=== PATIENT | female | born 1980 | race African-American/Black ===

== ENCOUNTER 2017-04-22 15:31 | Emergency (ER) | payer BC, OTHER ==
[2017-04-22 15:40] VITALS: BP 150/88; PULSE 83; TEMP 98.1; BMI 51.5
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
[2017-04-22] MEDS ORDERED: diazePAM 5 MG TABLET PO ONE (16:35)
[2017-04-22] MEDS ORDERED: IBUPROFEN 600 MG TABLET (FP) PO ONE ×2 (16:35→16:45)
[2017-04-22] MEDS ORDERED: diazePAM 5 MG TABLET ONE (16:46)
== END 2017-04-22 18:37 | disposition home or self-care (01) ==
LOC: FER 15:31
DX: M54.41 Lumbago with sciatica, right side (principal); V43.52XA Car driver injured in collision with other type car in traffic accident, initial encounter; Y93.89 Activity, other specified; Y92.410 Unspecified street and highway as the place of occurrence of the external cause
CPT/HCPCS: 72100-TC-FY; 99282-25

== ENCOUNTER 2020-12-30 09:12 | Inpatient (IN) | payer BC ==
[2020-12-24 11:47] VITALS: BMI 52.2
[2020-12-30] MEDS ORDERED: ROPIVACAINE HCL 0.5% 30ML VIAL ONE (11:20)
[2020-12-30] MEDS ORDERED: MIDAZOLAM HCL 2 MG/2 ML SINGLE DOSE VIAL ONE (11:20)
[2020-12-30] MEDS ORDERED: SODIUM CHLORIDE 0.9% P/F 10 ML VIAL IJ ONE (11:20)
[2020-12-30] MEDS ORDERED: BUPIVACAINE HCL/PF 0.25% (2.5MG/ML) 10 ML VIAL ONE (12:15)
[2020-12-30] MEDS ORDERED: PROPOFOL 20 ML ONE ×2 (12:18)
[2020-12-30] MEDS ORDERED: fentaNYL CITRATE 250 MCG/5 ML VIAL ONE (12:18)
[2020-12-30] MEDS ORDERED: SUCCINYLCHOLINE CHLORIDE 200 MG/10 ML SYRINGE ONE (12:18)
[2020-12-30] MEDS ORDERED: ROCURONIUM BROMIDE 50 MG/5 ML SYRINGE ONE (12:18)
[2020-12-30] MEDS ORDERED: NEOSTIGMINE METHYLSULFATE 0.5 MG/1 ML - 10 ML MDV ONE (13:59)
[2020-12-30] MEDS ORDERED: BUPIVACAINE HCL/PF 0.25% (2.5MG/ML) 10 ML VIAL IJ ONE (14:53)
[2020-12-30] MEDS ORDERED: HYDROmorphone HCL/PF 1 MG/ML VIAL IVPB PRN (15:00)
[2020-12-30] MEDS ORDERED: SODIUM CHLORIDE 1,000 ML IV SCH (15:00)
[2020-12-30] MEDS ORDERED: ACETAMINOPHEN INJECTION 100 ML IVPB ONE (15:07)
[2020-12-30] MEDS ORDERED: METOCLOPRAMIDE HCL INJECTION 10 MG/2 ML VIAL ONE (15:07)
[2020-12-30] MEDS ORDERED: ONDANSETRON 4 MG/2 ML VIAL ONE (15:07)
[2020-12-30] MEDS ORDERED: oxyCODONE HCL 5 MG TABLET PO PRN ×3 (15:14→15:25)
[2020-12-30] MEDS ORDERED: PROMETHAZINE HCL 25 MG/1 ML VIAL IVPUSH PRN (15:14)
[2020-12-30] MEDS: ONDANSETRON 4 MG/2 ML VIAL IVPUSH SCH ×3 (15:15→23:55)
[2020-12-30] MEDS ORDERED: LACTATED RINGERS SOLUTION 1,000 ML IV SCH (15:15)
[2020-12-30] MEDS: ACETAMINOPHEN 1000 MG/100 ML VIAL IVPB SCH ×2 (15:16→21:06)
[2020-12-30] MEDS ORDERED: HYDROmorphone HCL/PF 1 MG/ML VIAL ONE (15:30)
[2020-12-30] MEDS: HYDROmorphone HCL/PF 1 MG/ML VIAL IVPUSH PRN ×3 (15:35→15:55)
[2020-12-30 15:47] LABS: HEMATOCRIT 33.9 % (32.4-45.2); HEMOGLOBIN 10.8 GM/dl (10.7-15.3); MCH 26.1 pg (25.7-33.7); MCHC 31.8 g/dl (32.0-36.0); MEAN CELL VOLUME 81.9 fl (80-96); MEAN PLT VOLUME 10.8 fl (7.5-11.1); PLATELET COUNT 199 10^3/uL (134-434); RBC 4.14 M/mm3 (3.60-5.2); RDW 13.7 % (11.6-15.6); WHITE BLOOD COUNT 18.1 K/mm3 (4.0-10.8)
[2020-12-30 16:05] LABS: ALBUMIN 3.2 g/dl (3.4-5.0); BILIRUBIN,TOTAL 0.5 mg/dl (0.2-1); CALCIUM 8.9 mg/dl (8.5-10); CREATININE 0.9 mg/dl (0.55-1.3)
[2020-12-30] MEDS: METOCLOPRAMIDE HCL INJECTION 10 MG/2 ML VIAL IVPUSH SCH ×2 (16:31→21:07)
[2020-12-30] MEDS: FAMOTIDINE 20 MG/50 ML IVPB 20 MG/50 ML MG IVPB SCH (21:07)
[2020-12-30] MEDS: ENOXAPARIN NA (PORCINE) 40 MG/0.4 ML DISP.SYRIN SQ SCH (21:07)
[2020-12-31] MEDS: ACETAMINOPHEN 1000 MG/100 ML VIAL IVPB SCH ×2 (02:37→08:18)
[2020-12-31] MEDS: METOCLOPRAMIDE HCL INJECTION 10 MG/2 ML VIAL IVPUSH SCH ×3 (03:02→16:25)
[2020-12-31] MEDS: ONDANSETRON 4 MG/2 ML VIAL IVPUSH SCH ×4 (03:02→16:25)
[2020-12-31 08:26] LABS: ALBUMIN 3.1 g/dl (3.4-5.0); BILIRUBIN,TOTAL 0.6 mg/dl (0.2-1); CREATININE 0.8 mg/dl (0.55-1.3); TOT PROT 7.1 g/dl (6.4-8.2)
[2020-12-31 08:33] LABS: HEMATOCRIT 33.3 % (32.4-45.2); HEMOGLOBIN 10.7 GM/dl (10.7-15.3); MCH 26.4 pg (25.7-33.7); MEAN CELL VOLUME 82.4 fl (80-96); MEAN PLT VOLUME 11.4 fl (7.5-11.1); PLATELET COUNT 198 10^3/uL (134-434); RBC 4.04 M/mm3 (3.60-5.2); RDW 13.3 % (11.6-15.6); WHITE BLOOD COUNT 13.6 K/mm3 (4.0-10.8)
[2020-12-31] MEDS: FAMOTIDINE 20 MG/50 ML IVPB 20 MG/50 ML MG IVPB SCH (09:14)
[2020-12-31] MEDS: ENOXAPARIN NA (PORCINE) 40 MG/0.4 ML DISP.SYRIN SQ SCH (09:14)
[2020-12-31 14:08] VITALS: BP 124/41; PULSE 64; TEMP 98.9
== END 2020-12-31 15:00 | disposition home or self-care (01) | DRG 621 ==
LOC: FM/S 09:39
PROVIDERS: ADMIT Surgery; ATTEND Surgery
PROC: 0DNW4ZZ Release Peritoneum, Percutaneous Endoscopic Approach (ICD-10-PCS; 2020-12-30)
PROC: 0DB64Z3 Excision of Stomach, Percutaneous Endoscopic Approach, Vertical (ICD-10-PCS; principal; 2020-12-30 13:16)
PROC: 0FB24ZX Excision of Left Lobe Liver, Percutaneous Endoscopic Approach, Diagnostic (ICD-10-PCS; 2020-12-30 13:16)
DX: E66.01 Morbid (severe) obesity due to excess calories (principal); Z68.43 Body mass index [BMI] 50.0-59.9, adult; R16.0 Hepatomegaly, not elsewhere classified; K66.0 Peritoneal adhesions (postprocedural) (postinfection)
CPT/HCPCS: 36415; 74240-TC-FY; 80053; 84703; 85027; 94760; J0131